=== PATIENT | male | born 1965 | race American Indian/Alaskan Native ===

== ENCOUNTER 2017-12-05 03:41 | Outpatient (CLI) | payer SELFPAY | END 2017-12-05 05:14 | disposition home or self-care (01) | LOC: LAB 03:41 | PROVIDERS: ATTEND Internal Medicine | DX: R05 Cough (principal) ==

== ENCOUNTER 2019-02-14 08:00 | Outpatient (CLI) | payer SELFPAY | END 2019-02-14 23:59 | disposition home or self-care (01) | LOC: CANPRECLI → RAD 08:00 | PROVIDERS: ATTEND Internal Medicine | DX: Z75.3 Unavailability and inaccessibility of health-care facilities (principal) ==